=== PATIENT | female | born 1960 | race African-American/Black ===

== ENCOUNTER 2021-01-08 10:02 | Emergency (ER) | payer OTHER ==
[~2021-01-08] VITALS: Ht 167.6 cm; Wt 141.0 kg
[2021-01-08 11:01] LABS: BG BASE EXCESS 0.7 mmol/L (-2.0-2.0); BG CARBOXYHEMOGLOBIN 0.3 % (0.5-1.5); BG DEOXYHEMOGLOBIN 5.7 % (0.0-5.0); BG FRACTION INSPIRED OXYGEN 21; BG METHEMOGLOBIN 0.2 % (0.0-1.5); BG OXYGEN SATURATION 94.3 % (92.0-98.5); BG OXYHEMOGLOBIN 93.8 % (94.0-97.0); BG PCO2 34.2 mmHg (35.0-45.0); BG PH 7.464 (7.350-7.450); BG PO2 69.1 mmHg (75.0-100.0); BG SAMPLE SITE RIGHT RADIAL; BG TOTAL HEMOGLOBIN 12.5 g/dL (12.0-18.0); BG VENT MODE ROOM AIR
[2021-01-08 11:11] LABS: BASOPHILS % 0.5 % (0.0-2.0); EOSINOPHILS % 0.1 % (0.0-5.0); HEMATOCRIT. 37.6 % (36.0-48.0); HEMOGLOBIN. 12.2 g/dL (12.0-16.0); LYMPHOCYTES % 19.9 % (20.0-50.0); MEAN CORPUSCULAR HEMOGLOBIN 28.1 pg (28.0-32.0); MEAN CORPUSCULAR VOLUME 86.9 fL (81.0-99.0); MEAN PLATELET VOLUME 8.3 fl (7.4-10.4); MONOCYTES % 9.5 % (2.0-8.0); PLATELET 222 x1000/uL (130-400); RED BLOOD CELL COUNT 4.33 mill/uL (4.2-5.4); RED CELL DISTRIBUTION WIDTH 14.4 % (11.6-14.6)
[2021-01-08 11:17] LABS: CHLORIDE 105 mEq/L (98-107)
[2021-01-08 11:19] LABS: PROTHROMBIN TIME 10.7 sec (9.6-11.0)
[2021-01-08] MEDS ORDERED: IOHEXOL 350 MG/ML 200ML INFUS..BTL IV ONE (15:13)
[2021-01-08] MEDS ORDERED: IOHEXOL-350 100 ML BOTTLE ONE (15:14)
[2021-01-08 21:21] VITALS: BP 164/76
== END 2021-01-08 21:50 | disposition short-term general hospital (02) ==
LOC: ER 10:02 → CANBEDREQ 01-09 02:21
DX: R04.2 Hemoptysis (principal); I16.0 Hypertensive urgency; R07.89 Other chest pain; R06.00 Dyspnea, unspecified; M79.89 Other specified soft tissue disorders; E11.9 Type 2 diabetes mellitus without complications; E78.00 Pure hypercholesterolemia, unspecified; E66.9 Obesity, unspecified; Z68.43 Body mass index [BMI] 50.0-59.9, adult
CPT/HCPCS: 36415; 36600; 71045; 71275; 80053; 82375; 82805; 83605; 83880; 84484; 85025; 85610; 93005; 93971; 99285; Q9967; Z7610

== ENCOUNTER 2022-06-17 11:39 | Emergency (ER) | payer OTHER ==
[~2022-06-17] VITALS: Ht 170.2 cm; Wt 124.0 kg
[2022-06-17 11:41] VITALS: BP 166/87
[2022-06-17] MEDS ORDERED: ACETAMINOPHEN 325MG TABLET PO ONE (16:30)
[2022-06-17] MEDS ORDERED: LIDO700A30 TP (18:23)
== END 2022-06-17 18:42 | disposition home or self-care (01) ==
LOC: ER 12:59
DX: M17.11 Unilateral primary osteoarthritis, right knee (principal); M79.661 Pain in right lower leg; M25.571 Pain in right ankle and joints of right foot; R26.2 Difficulty in walking, not elsewhere classified; M79.89 Other specified soft tissue disorders; M79.605 Pain in left leg; M79.672 Pain in left foot; I10 Essential (primary) hypertension; E11.9 Type 2 diabetes mellitus without complications; Z87.828 Personal history of other (healed) physical injury and trauma
CPT/HCPCS: 73562; 73590; 73610; 82962; 93971; 99284

== ENCOUNTER 2023-08-25 10:50 | Emergency (ER) | payer OTHER ==
[~2023-08-25] VITALS: Ht 167.6 cm; Wt 131.0 kg
[~2023-08-25 10:50] MED LIST: LIDO700A30 TP
[2023-08-25 11:19] VITALS: BP 168/83; PULSE 105; RESP 16; TEMP 98.2; O2SAT 100
[2023-08-25] MEDS ORDERED: CLOT45CR62 VG (11:24)
== END 2023-08-25 13:09 | disposition home or self-care (01) ==
LOC: ER 10:50
DX: L30.4 Erythema intertrigo (principal); E11.9 Type 2 diabetes mellitus without complications; E78.00 Pure hypercholesterolemia, unspecified; I10 Essential (primary) hypertension
CPT/HCPCS: 99282; Z7610 ×2; 99281

== ENCOUNTER 2023-11-04 09:55 | Emergency (ER) | payer OTHER ==
[~2023-11-04] VITALS: Ht 172.7 cm; Wt 120.0 kg
[~2023-11-04 09:55] MED LIST changes: +CLOT45CR62 VG
[2023-11-04 10:03] VITALS: BP 141/69; O2SAT 97
[2023-11-04] MEDS ORDERED: ACETAMINOPHEN 325MG TABLET PO ONE (10:30)
[2023-11-04] MEDS ORDERED: CYCLOBENZAPRINE 10MG TABLET PO ONE (10:30)
[2023-11-04] MEDS ORDERED: ACET-2708 MT (11:30)
[2023-11-04] MEDS ORDERED: LIDO700A15 TP (11:30)
[2023-11-04 13:38] VITALS: PULSE 103; RESP 18; TEMP 98.5
== END 2023-11-04 13:38 | disposition home or self-care (01) ==
LOC: ER 09:55
DX: M51.37 Other intervertebral disc degeneration, lumbosacral region (principal); E11.9 Type 2 diabetes mellitus without complications; E78.00 Pure hypercholesterolemia, unspecified; I10 Essential (primary) hypertension; Z98.890 Other specified postprocedural states; Z88.8 Allergy status to other drugs, medicaments and biological substances; Z88.6 Allergy status to analgesic agent
CPT/HCPCS: 72100; 99283